=== PATIENT | female | born 1945 | race Caucasian/White ===

== ENCOUNTER 2020-02-03 09:25 | Inpatient (IN) ==
[2020-02-03] MEDS ORDERED: Piperacillin/Tazobactam 3.375 GM in Water for inj. (sterile) 20 ML IVP ONE (09:48)
[2020-02-03 09:58] LABS: Mean Platelet Volume 10.6 fL (9.4-12.4)
[2020-02-03 10:00] LABS: Basophils % 0.3 %; Eosinophils # 0.2 K/mcL (0.0-0.6); Eosinophils % 1.7 %; Hematocrit 18.8 % (35.3-44.9); Immature Granulocytes % 0.3 % (0-4); Lymphocytes % 30.9 %; Mean Corpuscular HGB Conc 30.3 g/dL (31.6-35.5); Mean Corpuscular Hemoglobin 29.7 pg (28.0-33.3); Mean Corpuscular Volume 97.9 fL (83.0-100.0); Monocytes % 11.4 %; Neutrophils # 4.9 K/mcL (1.6-8.9); Platelet Count 224 K/mcL (140-400); Red Blood Count 1.92 M/mcL (3.82-4.97); Red Cell Distribution Width 14.2 % (11.5-14.5); Segmented Neutrophils % 55.4 %; White Blood Count 8.9 K/mcL (4.3-11.1)
[2020-02-03 10:03] LABS: INR 1.1; Prothrombin Time 12.9 Seconds (9.4-12.1)
[2020-02-03 10:05] LABS: Activated Partial Thrombo Time 32.8 Seconds (26.0-36.0)
[2020-02-03 10:14] LABS: ABG Base Excess 7 mEq/L (-2 to 3); ABG HCO3 32 mEq/L (21-27); ABG Oxygen Saturation 99 % (95-98); ABG PCO2 54 mmHg (35-45); ABG PH 7.39 pH Units (7.32-7.45); ABG PO2 123 mmHg (85-104); ABG TCO2 34 mEq/L (20-26)
[2020-02-03 10:18] LABS: Lymphocytes # 2.8 K/mcL (0.6-4.6)
[2020-02-03 10:19] LABS: Albumin 2.4 g/dL (3.5-5.7); Potassium 4.6 mEq/L (3.5-5.1)
[2020-02-03 10:20] LABS: Hemoglobin 5.7 g/dL (11.5-15.4)
[2020-02-03 10:24] LABS: Platelet Estimate Normal (Normal)
[2020-02-03 10:30] LABS: Bilirubin,Urine Negative (Negative); Blood,Urine Large (Negative); Color,Urine Yellow (Yellow); Glucose,Urine (UA) Normal (Normal); Ketones,Urine Negative (Negative); Leukocyte Esterase,Urine Small (Negative); Nitrite,Urine Negative (Negative); PH,Urine 5.5 pH Units (5.0-8.0); Protein,Urine 30 mg/dL (Neg-Trace); Specific Gravity,Urine 1.015 (1.010-1.025); Urobilinogen,Urine Normal (Normal)
[2020-02-03 10:31] LABS: Albumin/Globulin Ratio 0.7 (1.1-2.2); Bilirubin,Direct 0.1 mg/dL (0.0-0.2); Bilirubin,Indirect 0.1 mg/dL (0.0-1.0); Bilirubin,Total 0.2 mg/dL (0.3-1.0); Globulin 3.4 g/dL (2.4-3.5); Magnesium 2.8 mg/dL (1.6-2.6); Total Protein 5.8 g/dL (6.4-8.9); Troponin I 0.33 ng/mL (< 0.04)
[2020-02-03 10:33] LABS: Hyaline Casts,Urine None Seen per lpf (None-Few); Squamous Epithelial Cell,Urine Many per lpf (None-Few); WBC,Urine 15-30 per hpf (0-3)
[2020-02-03 10:34] LABS: Clarity,Urine Slightly Hazy (Clear)
[2020-02-03 10:51] LABS: Bacteria,Urine Moderate per hpf (None-Few); RBC,Urine 50-100 per hpf (0-3); Yeast,Urine Moderate per hpf (None Seen)
[2020-02-03] MEDS ORDERED: Pantoprazole 40 MG VIAL IVP ONE (11:04)
[2020-02-03] MEDS ORDERED: Water for inj. (sterile) 10 ML ONE (11:24)
[2020-02-03] MEDS ORDERED: Naloxone 0.4 MG/ML INJ IVP PRN (11:36)
[2020-02-03] MEDS ORDERED: Ondansetron 4 MG/2 ML VIAL IVP PRN (11:36)
[2020-02-03] MEDS ORDERED: Artificial Tears SOLN 15 ML BOTTLE BOTH EYES PRN (12:16)
[2020-02-03 12:24] LABS: Procalcitonin 0.19 ng/mL (0.00-0.15)
[2020-02-03 12:41] LABS: Folate 12.5 ng/mL (3.0-16.0)
[2020-02-03] MEDS ORDERED: Dextrose Gel 15 GM/37.5 ML TUBE PO PRN ×2 (12:51)
[2020-02-03] MEDS ORDERED: *HR* Dextrose 50 % in Water (Syg) 50 ML SYRINGE IVP PRN (12:51)
[2020-02-03] MEDS ORDERED: D5% in Water 1,000 ML IVC PRN (12:51)
[2020-02-03] MEDS ORDERED: 0.9 % Sodium Chloride 500 ML ONE (13:26)
[2020-02-03] MEDS ORDERED: Cyanocobalamin (B-12) 1,000 MCG/ML VIAL IM ONE (14:10)
[2020-02-03] MEDS: Piperacillin/Tazobactam 3.375 GM in 0.9 % Sodium Chloride Mini Bag 100 ML IVPB SCH (17:51)
[2020-02-03] MEDS: Insulin LISPRO 300 UNITS/3 ML VIAL SQ SCH (19:07)
[2020-02-03] MEDS: Pantoprazole 40 MG VIAL IVP SCH (19:08)
[2020-02-03] MEDS: Melatonin 3 MG TABLET PO SCH (22:33)
[2020-02-03] MEDS: Sennosides/Docusate Sodium TABLET PO SCH (22:33)
[2020-02-03] MEDS: Mirtazapine 15 MG TABLET PO SCH (22:33)
[2020-02-03] MEDS: *HR* LORazepam 0.5 MG TABLET PO SCH (22:33)
[2020-02-03 23:23] LABS: Immature Reticulocyte % 22.3 % (11.0-38.0); Retculocyte # 0.06 M/mcL (0.05-0.10); Reticulocyte % 2.1 % (1.6-2.8)
[2020-02-04] MEDS ORDERED: 0.9 % Sodium Chloride 250 ML ONE (00:38)
[2020-02-04] MEDS: Insulin LISPRO 300 UNITS/3 ML VIAL SQ SCH ×4 (01:35→18:46)
[2020-02-04 04:52] LABS: Basophils % 0.4 %; Eosinophils # 0.3 K/mcL (0.0-0.6); Eosinophils % 3.3 %; Hematocrit 26.7 % (35.3-44.9); Immature Granulocytes % 0.6 % (0-4); Lymphocytes # 2.6 K/mcL (0.6-4.6); Lymphocytes % 32.8 %; Mean Corpuscular HGB Conc 31.5 g/dL (31.6-35.5); Mean Corpuscular Hemoglobin 29.4 pg (28.0-33.3); Mean Corpuscular Volume 93.4 fL (83.0-100.0); Mean Platelet Volume 10.7 fL (9.4-12.4); Monocytes # 0.9 K/mcL (0.0-1.3); Monocytes % 11.1 %; Neutrophils # 4.1 K/mcL (1.6-8.9); Platelet Count 248 K/mcL (140-400); Red Blood Count 2.86 M/mcL (3.82-4.97); Red Cell Distribution Width 15.1 % (11.5-14.5); Segmented Neutrophils % 51.8 %
[2020-02-04 04:53] LABS: Hemoglobin 8.4 g/dL (11.5-15.4)
[2020-02-04 05:02] LABS: INR 1.1; Prothrombin Time 12.1 Seconds (9.4-12.1)
[2020-02-04 05:12] LABS: Albumin 2.6 g/dL (3.5-5.7); Albumin/Globulin Ratio 0.7 (1.1-2.2); Bilirubin,Total 0.4 mg/dL (0.3-1.0); Calcium 8.2 mg/dL (8.6-10.3); Globulin 3.6 g/dL (2.4-3.5); Magnesium 2.7 mg/dL (1.6-2.6); Phosphorous 5.2 mg/dL (2.7-4.5); Potassium 4.3 mEq/L (3.5-5.1); Total Protein 6.2 g/dL (6.4-8.9)
[2020-02-04] MEDS: Pantoprazole 40 MG VIAL IVP SCH ×2 (05:27→18:28)
[2020-02-04] MEDS: Piperacillin/Tazobactam 3.375 GM in 0.9 % Sodium Chloride Mini Bag 100 ML IVPB SCH ×2 (05:27→18:28)
[2020-02-04] MEDS: Levothyroxine 25 MCG TABLET PO SCH (05:28)
[2020-02-04] MEDS: Ringers Solution, Lactated 1,000 ML IVC SCH (05:54)
[2020-02-04] MEDS: Sennosides/Docusate Sodium TABLET PO SCH ×2 (09:42→21:27)
[2020-02-04] MEDS ORDERED: Azithromycin 500 MG in 0.9 % Sodium Chloride 250 ML IVPB SCH (13:00)
[2020-02-04] MEDS: hydrALAZINE 10 MG TABLET PO SCH ×2 (15:12→21:27)
[2020-02-04] MEDS: Doxycycline 100 MG in 0.9 % Sodium Chloride Mini Bag 100 ML IVPB SCH (15:12)
[2020-02-04] MEDS: amLODIPine 5 MG TABLET PO SCH (15:12)
[2020-02-04] MEDS: Mirtazapine 15 MG TABLET PO SCH (21:27)
[2020-02-04] MEDS: Melatonin 3 MG TABLET PO SCH (21:27)
[2020-02-04] MEDS: *HR* LORazepam 0.5 MG TABLET PO SCH (21:50)
[2020-02-05] MEDS: Insulin LISPRO 300 UNITS/3 ML VIAL SQ SCH ×5 (00:25→20:16)
[2020-02-05 02:34] LABS: Basophils % 0.4 %; Eosinophils # 0.1 K/mcL (0.0-0.6); Eosinophils % 1.3 %; Hematocrit 28.1 % (35.3-44.9); Hemoglobin 8.9 g/dL (11.5-15.4); Immature Granulocytes % 0.9 % (0-4); Immature Platelets 2.3 % (1.1-6.1); Lymphocytes % 23.4 %; Mean Corpuscular HGB Conc 31.7 g/dL (31.6-35.5); Mean Corpuscular Hemoglobin 29.3 pg (28.0-33.3); Mean Corpuscular Volume 92.4 fL (83.0-100.0); Mean Platelet Volume 10.8 fL (9.4-12.4); Monocytes # 0.7 K/mcL (0.0-1.3); Monocytes % 8.5 %; Platelet Count 243 K/mcL (140-400); Red Blood Count 3.04 M/mcL (3.82-4.97); Segmented Neutrophils % 65.5 %; White Blood Count 8.5 K/mcL (4.3-11.1)
[2020-02-05 02:56] LABS: Neutrophils # 5.6 K/mcL (1.6-8.9)
[2020-02-05 02:57] LABS: Platelet Estimate Normal (Normal)
[2020-02-05 04:07] LABS: Calcium 8.4 mg/dL (8.6-10.3); Potassium 3.4 mEq/L (3.5-5.1)
[2020-02-05] MEDS: Doxycycline 100 MG in 0.9 % Sodium Chloride Mini Bag 100 ML IVPB SCH ×2 (05:28→17:34)
[2020-02-05] MEDS: Piperacillin/Tazobactam 3.375 GM in 0.9 % Sodium Chloride Mini Bag 100 ML IVPB SCH ×2 (05:29→19:42)
[2020-02-05] MEDS: Levothyroxine 25 MCG TABLET PO SCH (05:30)
[2020-02-05] MEDS: Pantoprazole 40 MG VIAL IVP SCH ×2 (05:30→17:34)
[2020-02-05] MEDS ORDERED: Ringers Solution, Lactated 1,000 ML IVC ONE (07:49)
[2020-02-05] MEDS: hydrALAZINE 10 MG TABLET PO SCH ×3 (08:08→19:42)
[2020-02-05] MEDS: Sennosides/Docusate Sodium TABLET PO SCH ×2 (08:08→19:42)
[2020-02-05] MEDS: amLODIPine 5 MG TABLET PO SCH (08:09)
[2020-02-05] MEDS ORDERED: Aminoglycoside Consult 1 EACH MC ONE (09:47)
[2020-02-05] MEDS: polyethylene glycoL 3350 17 GM POWD.PACK PO SCH (12:11)
[2020-02-05] MEDS: MOM Conc 10 ML UD.LIQ PO SCH (12:11)
[2020-02-05] MEDS ORDERED: D5% in Water 1,000 ML IVC PRN (16:30)
[2020-02-05] MEDS ORDERED: *HR* Dextrose 50 % in Water (Syg) 50 ML SYRINGE IVP PRN (16:30)
[2020-02-05] MEDS ORDERED: Dextrose Gel 15 GM/37.5 ML TUBE PO PRN ×2 (16:30)
[2020-02-05] MEDS: *HR* Heparin 5,000 UNIT/ML VIAL SQ SCH ×2 (17:34→23:03)
[2020-02-05] MEDS: Melatonin 3 MG TABLET PO SCH (19:40)
[2020-02-05] MEDS: Mirtazapine 15 MG TABLET PO SCH (19:42)
[2020-02-05] MEDS: *HR* LORazepam 0.5 MG TABLET PO SCH (19:42)
[2020-02-05] MEDS: Ringers Solution, Lactated 1,000 ML IVC SCH ×2 (20:17→23:28)
[2020-02-06] MEDS: *HR* Heparin 5,000 UNIT/ML VIAL SQ SCH ×3 (04:57→21:41)
[2020-02-06] MEDS: Doxycycline 100 MG in 0.9 % Sodium Chloride Mini Bag 100 ML IVPB SCH ×2 (04:57→17:51)
[2020-02-06] MEDS: Pantoprazole 40 MG VIAL IVP SCH ×2 (04:58→17:50)
[2020-02-06] MEDS: Piperacillin/Tazobactam 3.375 GM in 0.9 % Sodium Chloride Mini Bag 100 ML IVPB SCH ×2 (06:46→17:50)
[2020-02-06] MEDS: Levothyroxine 25 MCG TABLET PO SCH (06:47)
[2020-02-06] MEDS: cloNIDine HCL 0.1 MG TABLET PO SCH ×2 (08:00→21:37)
[2020-02-06] MEDS: MOM Conc 10 ML UD.LIQ PO SCH (08:00)
[2020-02-06] MEDS: Insulin LISPRO 300 UNITS/3 ML VIAL SQ SCH ×4 (08:00→21:39)
[2020-02-06] MEDS: amLODIPine 5 MG TABLET PO SCH (08:00)
[2020-02-06] MEDS: hydrALAZINE 10 MG TABLET PO SCH ×3 (08:00→21:34)
[2020-02-06] MEDS: Sennosides/Docusate Sodium TABLET PO SCH ×2 (08:01→21:41)
[2020-02-06] MEDS: polyethylene glycoL 3350 17 GM POWD.PACK PO SCH (08:01)
[2020-02-06] MEDS: *HR* OxyCODONE Immed Rel 5 MG TABLET PO PRN ×2 (08:04→14:49)
[2020-02-06 08:59] LABS: Basophils % 0.4 %; Eosinophils # 0.2 K/mcL (0.0-0.6); Eosinophils % 2.3 %; Hematocrit 31.1 % (35.3-44.9); Hemoglobin 9.3 g/dL (11.5-15.4); Immature Granulocytes % 1.2 % (0-4); Lymphocytes # 1.8 K/mcL (0.6-4.6); Mean Corpuscular HGB Conc 29.9 g/dL (31.6-35.5); Mean Corpuscular Hemoglobin 28.2 pg (28.0-33.3); Mean Corpuscular Volume 94.2 fL (83.0-100.0); Monocytes # 0.8 K/mcL (0.0-1.3); Monocytes % 9.3 %; Neutrophils # 5.6 K/mcL (1.6-8.9); Platelet Count 261 K/mcL (140-400); Red Cell Distribution Width 14.5 % (11.5-14.5); Segmented Neutrophils % 65.8 %; White Blood Count 8.4 K/mcL (4.3-11.1)
[2020-02-06 09:14] LABS: Calcium 8.4 mg/dL (8.6-10.3)
[2020-02-06] MEDS ORDERED: Ringers Solution, Lactated 500 ML IVC ONE (11:17)
[2020-02-06] MEDS ORDERED: *HR* Propofol 200 MG/20 ML VIAL IVP ONE (16:04)
[2020-02-06] MEDS ORDERED: Lidocaine HCL 4 ML Topical Solution (Laryng-O-Jet Kit Sterile Pak) TP ONE (16:04)
[2020-02-06] MEDS ORDERED: *HR* FentaNYL (PF) 100 MCG/2 ML VIAL ONE (16:04)
[2020-02-06] MEDS ORDERED: Ondansetron 4 MG/2 ML VIAL ONE (16:08)
[2020-02-06] MEDS ORDERED: Lidocaine -MPF 2% 2 ML VIAL ONE (16:08)
[2020-02-06] MEDS ORDERED: Dexamethasone 4 MG/ML VIAL ONE (16:08)
[2020-02-06] MEDS ORDERED: *HR* Succinylcholine 200 MG/10 ML VIAL IVP ONE (16:08)
[2020-02-06] MEDS: *HR* LORazepam 0.5 MG TABLET PO SCH (21:36)
[2020-02-06] MEDS: Mirtazapine 15 MG TABLET PO SCH (21:40)
[2020-02-06] MEDS: Melatonin 3 MG TABLET PO SCH (21:40)
[2020-02-07 05:38] LABS: Calcium 8.3 mg/dL (8.6-10.3); Potassium 5.3 mEq/L (3.5-5.1)
[2020-02-07] MEDS: *HR* Heparin 5,000 UNIT/ML VIAL SQ SCH ×3 (05:42→21:14)
[2020-02-07] MEDS: Doxycycline 100 MG in 0.9 % Sodium Chloride Mini Bag 100 ML IVPB SCH ×2 (05:42→18:17)
[2020-02-07] MEDS: Piperacillin/Tazobactam 3.375 GM in 0.9 % Sodium Chloride Mini Bag 100 ML IVPB SCH ×2 (05:45→18:16)
[2020-02-07] MEDS: Pantoprazole 40 MG VIAL IVP SCH (05:46)
[2020-02-07] MEDS: Levothyroxine 25 MCG TABLET PO SCH (05:47)
[2020-02-07] MEDS: hydrALAZINE 10 MG TABLET PO SCH ×3 (07:52→21:15)
[2020-02-07] MEDS: *HR* OxyCODONE Immed Rel 5 MG TABLET PO PRN ×2 (07:54→16:22)
[2020-02-07] MEDS: Sennosides/Docusate Sodium TABLET PO SCH ×2 (07:56→21:15)
[2020-02-07] MEDS: amLODIPine 5 MG TABLET PO SCH (07:56)
[2020-02-07] MEDS: cloNIDine HCL 0.1 MG TABLET PO SCH ×2 (07:58→21:15)
[2020-02-07] MEDS: MOM Conc 10 ML UD.LIQ PO SCH (07:59)
[2020-02-07] MEDS: polyethylene glycoL 3350 17 GM POWD.PACK PO SCH (07:59)
[2020-02-07] MEDS: Insulin LISPRO 300 UNITS/3 ML VIAL SQ SCH ×4 (08:02→21:21)
[2020-02-07 08:56] LABS: Basophils % 0.2 %; Hematocrit 31.5 % (35.3-44.9); Hemoglobin 9.7 g/dL (11.5-15.4); Immature Granulocytes % 1.1 % (0-4); Lymphocytes # 1.4 K/mcL (0.6-4.6); Lymphocytes % 25.6 %; Mean Corpuscular HGB Conc 30.8 g/dL (31.6-35.5); Mean Corpuscular Hemoglobin 29.1 pg (28.0-33.3); Mean Corpuscular Volume 94.6 fL (83.0-100.0); Mean Platelet Volume 10.4 fL (9.4-12.4); Monocytes # 0.3 K/mcL (0.0-1.3); Monocytes % 4.6 %; Neutrophils # 3.7 K/mcL (1.6-8.9); Platelet Count 248 K/mcL (140-400); Red Blood Count 3.33 M/mcL (3.82-4.97); Red Cell Distribution Width 14.2 % (11.5-14.5); Segmented Neutrophils % 68.5 %; White Blood Count 5.4 K/mcL (4.3-11.1)
[2020-02-07] MEDS ORDERED: SODIUM CHLORIDE/NAHCO3/KCL/PEG 4,000 ML SOLN.RECON PO ONE (17:00)
[2020-02-07] MEDS: Melatonin 3 MG TABLET PO SCH (21:14)
[2020-02-07] MEDS: *HR* LORazepam 0.5 MG TABLET PO SCH (21:15)
[2020-02-07] MEDS: Mirtazapine 15 MG TABLET PO SCH (21:15)
[2020-02-08] MEDS: *HR* OxyCODONE Immed Rel 5 MG TABLET PO PRN ×3 (04:09→22:34)
[2020-02-08 04:46] LABS: Basophils % 0.4 %; Eosinophils # 0.1 K/mcL (0.0-0.6); Eosinophils % 0.7 %; Hematocrit 29.5 % (35.3-44.9); Immature Granulocytes % 0.8 % (0-4); Lymphocytes # 3.7 K/mcL (0.6-4.6); Lymphocytes % 39.8 %; Mean Corpuscular HGB Conc 30.5 g/dL (31.6-35.5); Mean Corpuscular Hemoglobin 29.2 pg (28.0-33.3); Mean Corpuscular Volume 95.8 fL (83.0-100.0); Mean Platelet Volume 10.1 fL (9.4-12.4); Monocytes # 0.9 K/mcL (0.0-1.3); Monocytes % 9.6 %; Neutrophils # 4.5 K/mcL (1.6-8.9); Platelet Count 266 K/mcL (140-400); Red Blood Count 3.08 M/mcL (3.82-4.97); Red Cell Distribution Width 14.5 % (11.5-14.5); Segmented Neutrophils % 48.7 %
[2020-02-08 04:49] LABS: VBG HCO3 31 mEq/L (21-27); VBG PCO2 42 mmHg (41-51); VBG PH 7.48 pH Units (7.32-7.42); VBG PO2 105 mmHg (25-50)
[2020-02-08 04:50] LABS: White Blood Count 9.2 K/mcL (4.3-11.1)
[2020-02-08 05:08] LABS: Calcium 8.3 mg/dL (8.6-10.3); Magnesium 1.9 mg/dL (1.6-2.6); Potassium 4.5 mEq/L (3.5-5.1)
[2020-02-08] MEDS ORDERED: Ipratropium/Albuterol Neb 3 ML IH ONE (05:26)
[2020-02-08] MEDS: *HR* Heparin 5,000 UNIT/ML VIAL SQ SCH ×3 (06:02→22:20)
[2020-02-08] MEDS: Doxycycline 100 MG in 0.9 % Sodium Chloride Mini Bag 100 ML IVPB SCH ×2 (06:03→17:53)
[2020-02-08] MEDS: Piperacillin/Tazobactam 3.375 GM in 0.9 % Sodium Chloride Mini Bag 100 ML IVPB SCH ×2 (06:21→17:53)
[2020-02-08] MEDS: Levothyroxine 25 MCG TABLET PO SCH (06:21)
[2020-02-08 06:48] LABS: Estimated Average Glucose 137 mg/dl
[2020-02-08] MEDS: Insulin LISPRO 300 UNITS/3 ML VIAL SQ SCH ×4 (07:46→22:15)
[2020-02-08] MEDS: cloNIDine HCL 0.1 MG TABLET PO SCH ×2 (10:27→22:13)
[2020-02-08] MEDS: Sennosides/Docusate Sodium TABLET PO SCH ×2 (10:27→22:20)
[2020-02-08] MEDS: MOM Conc 10 ML UD.LIQ PO SCH (10:27)
[2020-02-08] MEDS: hydrALAZINE 10 MG TABLET PO SCH ×3 (10:27→22:16)
[2020-02-08] MEDS: amLODIPine 5 MG TABLET PO SCH (10:28)
[2020-02-08] MEDS: polyethylene glycoL 3350 17 GM POWD.PACK PO SCH (10:28)
[2020-02-08] MEDS: Ipratropium/Albuterol Neb 3 ML IH SCH ×3 (10:54→22:56)
[2020-02-08] MEDS: Linezolid 600 MG TABLET PO SCH (17:53)
[2020-02-08] MEDS: *HR* LORazepam 0.5 MG TABLET PO SCH (22:12)
[2020-02-08] MEDS: Melatonin 3 MG TABLET PO SCH (22:18)
[2020-02-09 03:00] LABS: Basophils % 0.4 %; Eosinophils # 0.2 K/mcL (0.0-0.6); Eosinophils % 2.4 %; Hematocrit 30.7 % (35.3-44.9); Hemoglobin 9.3 g/dL (11.5-15.4); Immature Granulocytes % 0.8 % (0-4); Lymphocytes # 3.1 K/mcL (0.6-4.6); Lymphocytes % 30.8 %; Mean Corpuscular HGB Conc 30.3 g/dL (31.6-35.5); Mean Corpuscular Hemoglobin 28.8 pg (28.0-33.3); Mean Platelet Volume 10.4 fL (9.4-12.4); Monocytes # 0.7 K/mcL (0.0-1.3); Monocytes % 7.2 %; Neutrophils # 5.9 K/mcL (1.6-8.9); Platelet Count 267 K/mcL (140-400); Red Blood Count 3.23 M/mcL (3.82-4.97); Segmented Neutrophils % 58.4 %; White Blood Count 10.1 K/mcL (4.3-11.1)
[2020-02-09 03:13] LABS: Calcium 7.9 mg/dL (8.6-10.3); Magnesium 1.6 mg/dL (1.6-2.6); Potassium 3.7 mEq/L (3.5-5.1)
[2020-02-09] MEDS: Ipratropium/Albuterol Neb 3 ML IH SCH ×4 (03:46→22:40)
[2020-02-09 05:17] LABS: Influenza A PCR Body Fluid NOT DETECTED; Influenza B PCR Body Fluid NOT DETECTED; RVP Body Fluid Source BAL
[2020-02-09] MEDS: *HR* Heparin 5,000 UNIT/ML VIAL SQ SCH ×3 (05:44→21:16)
[2020-02-09] MEDS: Levothyroxine 25 MCG TABLET PO SCH (05:44)
[2020-02-09] MEDS: Doxycycline 100 MG in 0.9 % Sodium Chloride Mini Bag 100 ML IVPB SCH (05:45)
[2020-02-09] MEDS: Linezolid 600 MG TABLET PO SCH ×2 (05:45→18:07)
[2020-02-09] MEDS: Piperacillin/Tazobactam 3.375 GM in 0.9 % Sodium Chloride Mini Bag 100 ML IVPB SCH ×2 (05:47→18:21)
[2020-02-09 08:16] LABS: RSV PCR Body Fluid NOT DETECTED
[2020-02-09] MEDS: *HR* OxyCODONE Immed Rel 5 MG TABLET PO PRN ×2 (09:45→22:20)
[2020-02-09] MEDS: Sennosides/Docusate Sodium TABLET PO SCH ×2 (09:46→21:14)
[2020-02-09] MEDS: MOM Conc 10 ML UD.LIQ PO SCH (09:46)
[2020-02-09] MEDS: amLODIPine 5 MG TABLET PO SCH (09:46)
[2020-02-09] MEDS: cloNIDine HCL 0.1 MG TABLET PO SCH ×2 (09:46→21:15)
[2020-02-09] MEDS: Insulin LISPRO 300 UNITS/3 ML VIAL SQ SCH ×4 (09:52→21:29)
[2020-02-09] MEDS: polyethylene glycoL 3350 17 GM POWD.PACK PO SCH (09:59)
[2020-02-09] MEDS: hydrALAZINE 10 MG TABLET PO SCH ×3 (09:59→21:16)
[2020-02-09] MEDS ORDERED: Ringers Solution, Lactated 1,000 ML IVC SCH (13:00)
[2020-02-09] MEDS: Iron Sucrose Complex 200 MG in 0.9 % Sodium Chloride 100 ML IVPB SCH (15:34)
[2020-02-09] MEDS: Doxycycline 100 MG CAPSULE PO SCH (21:14)
[2020-02-09] MEDS: Mirtazapine 15 MG TABLET PO SCH (21:15)
[2020-02-09] MEDS: *HR* LORazepam 0.5 MG TABLET PO SCH (23:30)
[2020-02-09] MEDS: Melatonin 3 MG TABLET PO SCH (23:30)
[2020-02-10 00:58] LABS: Hemoglobin 9.3 g/dL (11.5-15.4)
[2020-02-10 01:19] LABS: Potassium 3.5 mEq/L (3.5-5.1)
[2020-02-10] MEDS: Ipratropium/Albuterol Neb 3 ML IH SCH ×4 (04:02→22:25)
[2020-02-10] MEDS: Levothyroxine 25 MCG TABLET PO SCH (05:24)
[2020-02-10] MEDS: *HR* Heparin 5,000 UNIT/ML VIAL SQ SCH ×3 (05:24→22:24)
[2020-02-10] MEDS: Piperacillin/Tazobactam 3.375 GM in 0.9 % Sodium Chloride Mini Bag 100 ML IVPB SCH (05:25)
[2020-02-10] MEDS: *HR* OxyCODONE Immed Rel 5 MG TABLET PO PRN (05:33)
[2020-02-10] MEDS: SODIUM CHLORIDE/NAHCO3/KCL/PEG 4,000 ML SOLN.RECON PO ONE ×2 (07:20→08:11)
[2020-02-10] MEDS: Insulin LISPRO 300 UNITS/3 ML VIAL SQ SCH ×4 (10:03→22:29)
[2020-02-10] MEDS: polyethylene glycoL 3350 17 GM POWD.PACK PO SCH (10:03)
[2020-02-10] MEDS: hydrALAZINE 10 MG TABLET PO SCH ×3 (10:03→22:24)
[2020-02-10] MEDS: amLODIPine 5 MG TABLET PO SCH (10:04)
[2020-02-10] MEDS: Sennosides/Docusate Sodium TABLET PO SCH ×2 (10:04→22:24)
[2020-02-10] MEDS: Doxycycline 100 MG CAPSULE PO SCH (10:04)
[2020-02-10] MEDS: cloNIDine HCL 0.1 MG TABLET PO SCH ×2 (10:04→22:23)
[2020-02-10] MEDS: MOM Conc 10 ML UD.LIQ PO SCH (10:04)
[2020-02-10] MEDS: Iron Sucrose Complex 200 MG in 0.9 % Sodium Chloride 100 ML IVPB SCH (10:20)
[2020-02-10] MEDS ORDERED: Ringers Solution, Lactated 1,000 ML IVC SCH (12:45)
[2020-02-10] MEDS ORDERED: Ringers Solution, Lactated 500 ML IVC SCH (14:30)
[2020-02-10] MEDS: Melatonin 3 MG TABLET PO SCH (22:24)
[2020-02-10] MEDS: Mirtazapine 15 MG TABLET PO SCH (22:24)
[2020-02-10] MEDS: *HR* LORazepam 0.5 MG TABLET PO SCH (22:30)
[2020-02-11 02:04] LABS: Calcium 7.7 mg/dL (8.6-10.3); Potassium 2.9 mEq/L (3.5-5.1)
[2020-02-11] MEDS: Ipratropium/Albuterol Neb 3 ML IH SCH ×2 (04:08→10:56)
[2020-02-11] MEDS: Levothyroxine 25 MCG TABLET PO SCH (05:06)
[2020-02-11] MEDS: *HR* Heparin 5,000 UNIT/ML VIAL SQ SCH ×2 (05:12→12:27)
[2020-02-11] MEDS ORDERED: Lidocaine -MPF 2% 2 ML VIAL ONE ×2 (07:27→07:36)
[2020-02-11] MEDS ORDERED: *HR* Metoprolol 5 MG/5 ML VIAL IVP ONE (08:01)
[2020-02-11] MEDS ORDERED: Cyanocobalamin (B-12) 1,000 MCG/ML VIAL SQ ONE (08:54)
[2020-02-11] MEDS: Sennosides/Docusate Sodium TABLET PO SCH (10:19)
[2020-02-11] MEDS: cloNIDine HCL 0.1 MG TABLET PO SCH (10:19)
[2020-02-11] MEDS: polyethylene glycoL 3350 17 GM POWD.PACK PO SCH (10:19)
[2020-02-11] MEDS: Insulin LISPRO 300 UNITS/3 ML VIAL SQ SCH ×2 (10:19→12:26)
[2020-02-11] MEDS: amLODIPine 5 MG TABLET PO SCH (10:19)
[2020-02-11] MEDS: hydrALAZINE 10 MG TABLET PO SCH (10:20)
[2020-02-11] MEDS: MOM Conc 10 ML UD.LIQ PO SCH (10:20)
[2020-02-11] MEDS: Iron Sucrose Complex 200 MG in 0.9 % Sodium Chloride 100 ML IVPB SCH (10:20)
[2020-02-11 11:00] VITALS: BP 181/65
== END 2020-02-11 16:06 | DRG 177 ==
LOC: 2NENU 09:25 → EMEROOARM 09:25 → 2NENU 11:55 → SUATTDRO 14:01 → 2ANU 02-06 06:09
PROVIDERS: ADMIT Student in an Organized Health Care Education/Training Program; ATTEND Internal Medicine
PROC: ENDOEBX (2020-02-11 09:00)